=== PATIENT | female | born 1980 | race Two or more races ===

== ENCOUNTER 2018-06-18 21:54 | Emergency (ER) | payer SELFPAY ==
[2018-06-18 22:05] VITALS: BP 118/72
== END 2018-06-18 23:00 ==
LOC: JD.ED 21:54
DX: Z53.21 Procedure and treatment not carried out due to patient leaving prior to being seen by health care provider (principal)

== ENCOUNTER 2018-06-20 15:50 | Emergency (ER) | payer SELFPAY ==
[2018-06-20 16:12] VITALS: BP 123/70
[2018-06-20] MEDS ORDERED: Alum Hydrox/Mag Hydrox/Simeth 30 ML, Lidocaine 2% 15 ML PO ONE ×2 (16:43)
--- NOTE | 2018-06-20 16:53 | EDM.PDOC ---
ED HPI GENERAL MEDICAL PROBLEM - General Chief Complaint: Respiratory Problem Stated Complaint: SOB Time Seen by Provider: 06/20/18 16:15 Source of Information: Reports: Patient History Limitations: Reports: No Limitations - History of Present Illness INITIAL COMMENTS - FREE TEXT/NARRATIVE: 38-year-old female presents to emergency room with chief complaints of feeling like she is not able to take a deep breath. She reports the symptoms have been persistent for the past 6 days. She denies any chest pain fever or chills. She also states that she has increased belching. She reports that she had her gallbladder removed 11 years ago she does have a history of anxiety she reports that she's taken [id number] Prilosec for her symptoms today. She does not have a PCP. Onset Date: 06/15/18 Onset Time: 09:00 Duration: Getting Worse Location: Reports: Chest, Other Quality: Reports: Other ("Tickling sensation.") Improves with: Reports: None Worsens with: Reports: None Associated Symptoms: Reports: Other (Belching). 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 Denies: Fever, Chills, Malaise, Fatigue HEENT: Reports: No Symptoms Respiratory: Reports: Shortness of Breath. Denies: Pleuritic Chest Pain, Cough Cardiovascular: Reports: No Symptoms. Denies: Chest Pain Endocrine: Reports: No Symptoms GI/Abdominal: Reports: No Symptoms. Denies: Abdominal Pain, Constipation, Diarrhea, Decreased Appetite, Difficulty Swallowing, Nausea : Reports: No Symptoms Musculoskeletal: Reports: No Symptoms Skin: Reports: No Symptoms Neurological: Reports: No Symptoms Psychiatric: Reports: No Symptoms Hematologic/Lymphatic: Reports: No Symptoms Immunologic: Reports: No Symptoms ED EXAM, GENERAL - Physical Exam Exam: See Below Exam Limited By: No Limitations General Appearance: Alert, WD/WN, No Apparent Distress Nose: Normal Inspection, Normal Mucosa, No Blood Throat/Mouth: Normal Inspection, Normal Lips, Normal Teeth, Normal Gums, Normal Oropharynx, Normal Voice, No Airway Compromise Head: Atraumatic, Normocephalic Neck: Normal Inspection, Supple, Non-Tender, Full Range of Motion Respiratory/Chest: No Respiratory Distress, Lungs Clear, Normal Breath Sounds, No Accessory Muscle Use, Chest Non-Tender Cardiovascular: Normal Peripheral Pulses, Regular Rate, Rhythm, No Edema, No Gallop, No JVD, No Murmur, No Rub GI/Abdominal: Normal Bowel Sounds, Soft, Non-Tender, No Organomegaly, No Distention, No Abnormal Bruit, No Mass, Pelvis Stable Back Exam: Normal Inspection, Full Range of Motion Neurological: Alert, Oriented, CN II-XII Intact, Normal Cognition, Normal Gait, Normal Reflexes, No Motor/Sensory Deficits Psychiatric: Normal Affect, Normal Mood Skin Exam: Warm, Dry, Intact, Normal Color, No Rash Lymphatic: No Adenopathy Course - Vital Signs Last Recorded V/S: Last Vital Signs Temp 98.4 F 06/20/18 16:07 Pulse 105 H 06/20/18 16:07 Resp 13 06/20/18 16:07 BP 123/70 06/20/18 16:07 Pulse Ox 100 06/20/18 16:07 - Orders/Labs/Meds Meds: Medications Discontinued Medications Generic Name Dose Route Start Last Admin Trade Name Salomónq PRN Reason Stop Dose Admin Al Hydroxide/Mg Hydroxide 30 0 ml 06/20/18 16:43 06/20/18 16:46 ml/ Lidocaine HCl 15 ml PO 06/20/18 16:44 45 ml ONETIME ONE Administration - Re-Assessments/Exams Free Text/Narrative Re-Assessment/Exam: 06/20/18 16:55 I do not feel the patient would benefit from an x-ray at this time. I feel that her symptoms are due to GERD. Patient received a GI cocktail and her condition improved. I will discharge home with Prilosec, low-fat diet. I did instruct the patient to follow-up with a registered diet technician of her condition persist. Start the patient to return to the emergency room for new or acutely worsening symptoms. Departure - Departure Time of Disposition: 17:20 Disposition: Home, Self-Care 01 Condition: Good Clinical Impression: GERD (gastroesophageal reflux disease) Qualifiers: Esophagitis presence: with esophagitis Qualified Code(s): K21.0 - Gastro- esophageal reflux disease with esophagitis - Discharge Information *PRESCRIPTION DRUG MONITORING PROGRAM REVIEWED*: Not Applicable *COPY OF PRESCRIPTION DRUG MONITORING REPORT IN PATIENT MATILDA: Not Applicable Instructions: Gastroesophageal Reflux Disease, Adult Referrals: PCP,None [Primary Care Provider] - Forms: ED Department Discharge Additional Instructions: You have been diagnosed with GERD. I recommend that you take Prilosec 40 mg daily for 7 days then 20 mg daily for 7 days. You should follow a low-fat diet, no spicy food. You should not eat 2 hours before bedtime. Follow-up with your PCP for referral for a registered diet technician if her symptoms persist. Return to the emergency room for any new or acutely worsening symptoms.
== END 2018-06-20 17:29 | disposition home or self-care (01) ==
LOC: JD.ED 15:50
DX: K21.0 Gastro-esophageal reflux disease with esophagitis (principal)
CPT/HCPCS: 99283; A9270

== ENCOUNTER 2021-07-16 21:46 | Emergency (ER) | payer SELFPAY ==
[2021-07-16 22:11] VITALS: BP 130/106; PULSE 96
[2021-07-16 22:57] LABS: CORONAVIRUS COVID-19 NAA NEGATIVE (NEGATIVE)
[2021-07-17] MEDS ORDERED: Albuterol 6.7 GM Inhaler INH ONE (00:29)
== END 2021-07-17 00:45 | disposition home or self-care (01) ==
LOC: JD.ED 21:46
DX: B34.9 Viral infection, unspecified (principal); K21.9 Gastro-esophageal reflux disease without esophagitis; Z20.822 Contact with and (suspected) exposure to COVID-19
CPT/HCPCS: 0240U; 71046; 87651; 99283; A9270; 99284